=== PATIENT | male | born 1965 | race Caucasian/White ===

== ENCOUNTER 2021-08-05 14:35 | Emergency (ER) | payer SELFPAY ==
[~2021-08-05] VITALS: Ht 165.1 cm; Wt 56.8 kg
[2021-08-05 14:49] VITALS: BP 131/89; TEMP 98.6
[2021-08-05] MEDS ORDERED: NEURONTIN300 MG/CAP PO (14:53)
[2021-08-05] MEDS ORDERED: NORCO 325 MG-51 TAB PO (14:53)
[2021-08-05] MEDS ORDERED: FLEXERIL 1010 MG/TAB PO (14:53)
[2021-08-05] MEDS ORDERED: ROBAXIN 75750 MG/TAB PO (15:18)
[2021-08-05 15:32] VITALS: PULSE 99
== END 2021-08-05 15:32 | disposition home or self-care (01) ==
LOC: COL.ER 14:35
DX: M54.2 Cervicalgia (principal)